=== PATIENT | male | born 1960 | race Caucasian/White ===

== ENCOUNTER 2025-04-08 10:44 | Emergency (ER) | payer MEDICARE ==
[2025-04-08 10:54] VITALS: PULSE 96; RESP 17; TEMP 98.2
[2025-04-08] MEDS: OXYMETAZOLINE HCL 0.05% NAS 1 SPRAY BTL ONE (11:13)
[2025-04-08 12:40] VITALS: BP 125/71; PULSE 82; RESP 17; TEMP 98.2; O2SAT 100
== END 2025-04-08 12:41 | disposition home or self-care (01) ==
LOC: ER 11:04
DX: R04.0 Epistaxis (principal); I10 Essential (primary) hypertension; Z86.73 Personal history of transient ischemic attack (TIA), and cerebral infarction without residual deficits; Z79.01 Long term (current) use of anticoagulants
CPT/HCPCS: 99282